=== PATIENT | female | born 1990 | race American Indian/Alaskan Native ===

== ENCOUNTER 2021-09-03 19:22 | Emergency (ER) | payer SELFPAY ==
[2021-09-03 19:57] VITALS: BP 122/68
[2021-09-03] MEDS ORDERED: IBUPROFEN 600 MG TAB PO ONE (20:09)
[2021-09-03] MEDS ORDERED: ONDANSETRON 4 MG ODT TAB PO ONE (20:09)
[2021-09-03] MEDS ORDERED: HYDROcodone/ACETAMINOPHEN 7.5-325MG TAB PO ONE (20:09)
--- NOTE | 2021-09-03 20:49 | XRay Report ---
Right elbow 3 views INDICATION: Fall with pain FINDINGS: Postoperative change with plate and the distal humerus from prior injury. Alignment appears normal. No joint effusion is seen. No acute fracture. Pelvis and right hip 2 views INDICATION: Fall FINDINGS: Bilateral femoral heads well-seated in the acetabulum. No acute fracture dislocation. Super ior and inferior pubic rami appear intact. Signer Name: Ezequiel Han MD Signed: 09/03/2021 8:44 PM Workstation Name: [id number]
--- NOTE | 2021-09-03 20:57 | Emergency Department Report ---
ED Fall HPI - General Chief Complaint: Extremity Injury, Upper Stated Complaint: RIGHT ARM PAIN WITH SCREWS Source: patient Mode of arrival: Ambulatory - History of Present Illness Initial Comments: Patient is a 31-year-old -[place] female with no past medical history presents to the ED with complaint of acute onset persistent severe right elbow and hip pain after she tripped down the stairs and fell down landing on the right arm and hip about 2 hours prior to arrival in the ED. Patient states that she has not been able perform any active range of motion of the right elbow because of severe pain. Patient denies shoulder pain, neck pain, head or neck injuries, chest pain or shortness of breath, back pain, nausea and vomiting, loss of consciousness, seizures, syncope, dizziness or lightheadedness, numbness and tingling or weakness of upper and lower extremities bilaterally. MD Complaint: fall, other (right hip and elbow pain s/p fall) -: Sudden, hour(s) (2) Fall From: standing, down stairs (#) (3) When Fall Occurred: 1-3 hours [employer] Fall Witnessed: yes, by family Place Fall Occurred: home Loss of Consciousness: none Prolonged Down Time?: no Symptoms Prior to Fall: none Location: pelvis (right hip), other (right hip and elbow) Location - Extremities: Right: Elbow (pain), Thigh (hip and thigh pain) Severity: severe Severity scale (0 -10): 8 Quality: sharp, aching Context: tripped/slipped Associated Symptoms: denies. denies: headache, neck pain, numbness, weakness, shortness of breath, abdominal pain, hematuria, lightheaded, vertigo, confusion - Related Data Previous Rx's Medication Instructions Recorded Last Taken Type Baclofen 20 mg PO Q12H PRN #20 tab 09/03/21 Unknown Rx Ibuprofen [Motrin] 800 mg PO Q8HR PRN #30 tablet 09/03/21 Unknown Rx traMADoL [Ultram] 50 mg PO Q6HR PRN #10 tablet 09/03/21 Unknown Rx Allergies Allergy/AdvReac Type Severity Reaction Status Date / Time No Known Allergies Allergy Unverified 09/03/21 19:56 ED Review of Systems ROS: Stated complaint: RIGHT ARM PAIN WITH SCREWS Other details as noted in HPI Constitutional: denies: chills, fever Eyes: denies: eye pain, eye discharge, vision change ENT: denies: ear pain, throat pain Respiratory: denies: cough, shortness of breath, wheezing Cardiovascular: denies: chest pain, palpitations Endocrine: no symptoms reported Gastrointestinal: denies: abdominal pain, nausea, diarrhea Genitourinary: denies: urgency, dysuria, discharge Musculoskeletal: arthralgia (Right hip, right thigh and right elbow pain), myalgia. denies: back pain, joint swelling Skin: denies: rash, lesions Neurological: denies: headache, weakness, paresthesias Psychiatric: denies: anxiety, depression Hematological/Lymphatic: denies: easy bleeding, easy bruising ED Past Medical Hx - Past Medical History Previous Medical History?: No - Surgical History Past Surgical History?: No - Medications Home Medications: Home Medications Medication Instructions Recorded Confirmed Last Taken Type Baclofen 20 mg PO Q12H PRN #20 tab 09/03/21 Unknown Rx Ibuprofen [Motrin] 800 mg PO Q8HR PRN #30 tablet 09/03/21 Unknown Rx traMADoL [Ultram] 50 mg PO Q6HR PRN #10 tablet 09/03/21 Unknown Rx ED Physical Exam - General Limitations: No Limitations General appearance: alert, in no apparent distress - Head Head exam: Present: atraumatic, normocephalic, normal inspection - Eye Eye exam: Present: normal appearance, PERRL, EOMI Pupils: Present: normal accommodation - ENT ENT exam: Present: normal exam, normal orophraynx, mucous membranes moist, TM's normal bilaterally, normal external ear exam - Neck Neck exam: Present: normal inspection, full ROM. Absent: tenderness - Respiratory Respiratory exam: Present: normal lung sounds bilaterally. Absent: respiratory distress, wheezes, chest wall tenderness, accessory muscle use, decreased breath sounds, prolonged expiratory - Cardiovascular Cardiovascular Exam: Present: regular rate, normal rhythm, normal heart sounds. Absent: systolic murmur, diastolic murmur, rubs, gallop - GI/Abdominal GI/Abdominal exam: Present: soft, normal bowel sounds. Absent: tenderness, guarding, rebound, hyperactive bowel sounds, organomegaly - Extremities Exam Extremities exam: Present: normal inspection, tenderness (Palpable right elbow and right hip tenderness with limited range of motion due to pain.), normal capillary refill. Absent: full ROM (Limited range of motion of right hip and right elbow due to pain), pedal edema, joint swelling, calf tenderness - Back Exam Back exam: Present: normal inspection, full ROM. Absent: tenderness, CVA tenderness (R), CVA tenderness (L), muscle spasm, paraspinal tenderness, vertebral tenderness - Neurological Exam Neurological exam: Present: alert, oriented X3, CN II-XII intact, normal gait, reflexes normal - Psychiatric Psychiatric exam: Present: normal affect, normal mood - Skin Skin exam: Present: warm, dry, intact, normal color. Absent: rash ED Course Vital Signs 09/03/21 19:42 Temperature 99.4 F Pulse Rate 94 H Respiratory 16 Rate Blood Pressure 122/68 [Left] O2 Sat by Pulse 98 Oximetry ED Medical Decision Making - Radiology Data Radiology results: report reviewed, image reviewed [address] [address] XRay Report Signed Patient: AELX CASTILLO MR#: [id number] : 1990 Acct:[id number] Age/Sex: 31 / F ADM Date: 09/03/21 Loc: ED Attending Dr: Ordering Physician: DON RIVAS Date of Service: 09/03/21 Procedure(s): XR elbow 3+V RT Accession Number(s): [id number] cc: DON RIVAS Fluoro Time In Minutes: Right elbow 3 views INDICATION: Fall with pain FINDINGS: Postoperative change with plate and the distal humerus from prior injury. Alignment appears normal. No joint effusion is seen. No acute fracture. Pelvis and right hip 2 views INDICATION: Fall FINDINGS: Bilateral femoral heads well-seated in the acetabulum. No acute fracture dislocation. Superior and inferior pubic rami appear intact. Signer Name: Ezequiel Hayden MD Signed: 09/03/2021 8:44 PM Workstation Name: [id number] Transcribed By: CW Dictated By: ROSEANN HAYDEN MD Electronically Authenticated By: ROSEANN HAYDEN MD Signed Date/Time: 09/03/212043 DD/ 43 TD/TT: - Medical Decision Making This is a 31-year-old -[place] female with no past medical history presents to the ED with complaint of acute onset persistent severe right elbow and hip pain after she tripped down the stairs and fell down landing on the right arm and hip about 2 hours prior to arrival in the ED. Patient states that she has not been able perform any active range of motion of the right elbow because of severe pain. In the ED, patient is alert and oriented x3 and is not in any distress. Patient however appears to be in significant pain unable to perform any active range of motion with the right elbow. Patient was treated for pain in the ED with pain medications, and right elbow x-ray showed postoperative change with plate and the distal humerus from prior injury. Alignment appears normal. No joint effusion is seen. No acute fracture. The right hip x- ray showed bilateral femoral heads well-seated in the acetabulum. No acute fracture dislocation. Superior and inferior pubic rami appear intact. The right arm was immobilized on an arm sling. On reevaluation, patient's pain is well controlled medication. Patient would discharge home on pain medications and muscle relaxants and advised to follow-up with her primary care physician in 5 to 7 days for reevaluation. Patient is advised return to the ED immediately if symptoms get worse. - Differential Diagnosis Elbow fracture; elbow sprain; arm contusion; hip contusion; hip sprain Critical care attestation.: If time is entered above; I have spent that time in minutes in the direct care of this critically ill patient, excluding procedure time. ED Disposition Clinical Impression: Sprain of right elbow Qualifiers: Encounter type: initial encounter Qualified Code(s): S53.401A - Unspecified sprain of right elbow, initial encounter Contusion of right hip and thigh Qualifiers: Encounter type: initial encounter Qualified Code(s): S70.01XA - Contusion of right hip, initial encounter; S70.11XA - Contusion of right thigh, initial encounter Disposition: 01 HOME / SELF CARE / HOMELESS Is pt being admited?: No Does the pt Need Aspirin: No Condition: Stable Instructions: Contusion, [id number], Elbow Sprain Additional Instructions: The x-rays of right hip and right elbow showed no acute fractures or subluxations, the metallic hardware on the right distal humerus from a previous fracture is intact. Therefore your injuries are likely musculoskeletal following the fall at home. So take pain medications with food, drink plenty of fluids and follow-up with your primary care physician in 5 to 7 days for reevaluation. Return to the ED immediately if symptoms get worse. Prescriptions: Baclofen 20 mg PO Q12H PRN #20 tab PRN Reason: Muscle Spasm Ibuprofen [Motrin] 800 mg PO Q8HR PRN #30 tablet PRN Reason: Pain , Severe (7-10) traMADoL [Ultram] 50 mg PO Q6HR PRN #10 tablet PRN Reason: Pain Referrals: [facility] [Provider Group] - 3-5 Days Forms: Work/School Release Form(ED) Time of Disposition: 21:01 Print Language: LAO
== END 2021-09-03 21:38 | disposition home or self-care (01) ==
LOC: ED 19:22
DX: S53.401A Unspecified sprain of right elbow, initial encounter (principal); S70.01XA Contusion of right hip, initial encounter; S70.11XA Contusion of right thigh, initial encounter; W10.9XXA Fall (on) (from) unspecified stairs and steps, initial encounter; Y93.89 Activity, other specified; Y92.89 Other specified places as the place of occurrence of the external cause; Y99.8 Other external cause status
CPT/HCPCS: 99283; Q0162